=== PATIENT | female | born 1975 | race Caucasian/White ===

== ENCOUNTER 2018-07-12 08:24 | Outpatient (CLI) | payer BC, SELFPAY ==
[2018-07-12 16:11] LABS: TSH (W/Ref FT4) 0.03 uIU/mL (0.358-3.74)
[2018-07-12 16:48] LABS: FREE T4 1.28 ng/dL (0.76-1.46)
== END 2018-07-12 08:44 ==
PROVIDERS: PCP Family Medicine; Visit Provider Family Medicine
DX: E03.9 Hypothyroidism, unspecified (principal)
CPT/HCPCS: 36415; 84439; 84443

== ENCOUNTER 2019-08-01 02:36 | Outpatient (CLI) | payer BC, SELFPAY ==
[2019-08-01 16:04] LABS: TSH (W/Ref FT4) 0.03 uIU/mL (0.36-3.74)
== END 2019-08-01 02:56 ==
PROVIDERS: PCP Family Medicine; Visit Provider Family Medicine
DX: E03.9 Hypothyroidism, unspecified (principal)
CPT/HCPCS: 36415; 84439; 84443

== ENCOUNTER 2019-11-13 15:01 | Outpatient (REF) | payer BC, SELFPAY ==
[2019-11-13 16:35] LABS: TSH (W/Ref FT4) 0.03 uIU/mL (0.36-3.74)
[2019-11-13 16:57] LABS: FREE T4 1.24 ng/dL (0.76-1.46)
[2019-11-16 17:03] LABS: SARS-CoV-2 RNA Undetected (Undetected); SARS-CoV-2 Specimen Source Nasopharynx
== END 2019-11-13 15:21 ==
LOC: NCHCN 15:01
PROVIDERS: Visit Provider Nurse Practitioner Family
DX: E03.9 Hypothyroidism, unspecified (principal); Z20.828 Contact with and (suspected) exposure to other viral communicable diseases
CPT/HCPCS: U0003; 84439; 84443

== ENCOUNTER 2020-01-07 07:38 | Outpatient (REF) | payer BC, SELFPAY ==
[2020-01-07 20:18] LABS: TSH (W/Ref FT4) 0.19 uIU/mL (0.36-3.74)
[2020-01-07 20:38] LABS: FREE T4 1.06 ng/dL (0.76-1.46)
== END 2020-01-07 07:58 ==
LOC: NCHCN 07:38
PROVIDERS: Visit Provider Nurse Practitioner Family
DX: E03.9 Hypothyroidism, unspecified (principal)
CPT/HCPCS: 84439; 84443

== ENCOUNTER 2020-03-18 19:57 | Outpatient (REF) | payer BC, SELFPAY ==
[2020-03-18 19:46] LABS: TSH (W/Ref FT4) 24.12 uIU/mL (0.36-3.74)
[2020-03-18 20:09] LABS: FREE T4 0.73 ng/dL (0.76-1.46)
== END 2020-03-18 20:17 ==
LOC: LBN 19:57
PROVIDERS: Visit Provider Family Medicine
DX: E03.9 Hypothyroidism, unspecified (principal)
CPT/HCPCS: 84439; 84443

== ENCOUNTER 2020-08-04 09:01 | Outpatient (REF) | payer BC, SELFPAY ==
[2020-08-04 12:18] LABS: TSH (W/Ref FT4) 3.99 uIU/mL (0.36-3.74)
[2020-08-04 12:44] LABS: FREE T4 1.14 ng/dL (0.76-1.46)
== END 2020-08-04 09:02 | disposition home or self-care (01) ==
LOC: NCHCN 09:01
PROVIDERS: Visit Provider Family Medicine
DX: E03.9 Hypothyroidism, unspecified (principal)
CPT/HCPCS: 84439; 84443

== ENCOUNTER 2020-08-19 01:29 | Outpatient (CLI) | payer BC, SELFPAY ==
--- NOTE | 2020-08-19 16:21 | DI.MAMMO_ITS ---
EXAM: MG MAMMO SCREENING CLINICAL HISTORY: SCREENING, Z12.39. TECHNIQUE: Bilateral full field digital CC and MLO mammographic images were obtained with 3D tomosyn thesis and utilizing computer aided detection (CAD). COMPARISON: Prior baseline mammogram June 2017 FINDINGS: The fibroglandular tissue is again noted be dense, this decreasing the sensitivity mammogram for find ing in underlying lesions. There are no CAD designations. No new obvious radiographic findings in the right breast. Anteriorly in the left breast there is a suggestion of possible nodule in the retroareolar region tristin suring 7 by millimeters located 1.6 cm in from the nipple. There are no malignant-appearing microcalcification groups is region or elsewhere in either breast. No new architectural distortion or skin thickening-traction IMPRESSION: Dense bilateral fibroglandular tissue. Asymmetric density-possible nodule anteriorly in the left keyshawn ast. Breast ultrasound recommended. BI-RADS Category 0 - Assessment Incomplete: Need additional imaging evaluation Breast Density - Category C - Heterogeneously dense Breast density Category C or D implies that the patient has dense breast tissue. Dense breast tissue can make it harder to find cancer on a mammogram. Dense breast tissue is also associated with an incr eased risk of breast cancer. This information about the result of the mammogram report was provided to the patient to raise their awareness. Use this report when you speak with the patient about their risks for breast cancer, which includes their family history. At that time, you may recommend additional screening tests (Ultrasoun d or MRI) as these tests may add significant information. A negative radiographic report should not delay biopsy if a dominant or clinically suspicious mass is present. Up to ten percent of cancers are not identified on mammography. A negative report may reinforce clinical impression. Adenosis and dense breasts may obscure an underlying neoplasm. False positive reports average 6 to 10%. Patient will receive a letter notifying them of these results.
== END 2020-08-19 01:49 ==
PROVIDERS: PCP Family Medicine; Visit Provider Family Medicine
DX: Z12.31 Encounter for screening mammogram for malignant neoplasm of breast (principal); R92.8 Other abnormal and inconclusive findings on diagnostic imaging of breast
CPT/HCPCS: 77063; 77067

== ENCOUNTER 2021-08-16 12:00 | Outpatient (REF) | payer BC, SELFPAY ==
[2021-08-16 17:22] LABS: TSH 8.45 uIU/mL (0.36-3.74)
== END 2021-08-16 12:01 | disposition home or self-care (01) ==
LOC: NCHCN 12:00
PROVIDERS: PCP Family Medicine; Visit Provider Family Medicine
DX: E03.9 Hypothyroidism, unspecified (principal)
CPT/HCPCS: 84443

== ENCOUNTER 2021-09-01 01:32 | Outpatient (CLI) | payer BC, SELFPAY ==
--- NOTE | 2021-09-01 | DI.MAMMO_ITS ---
Exam(s) MAMMO SCREENING EXAM: MAMMO SCREENING CLINICAL HISTORY: SCREENING, Z12.39 TECHNIQUE: Mammograms were interpreted according to the usual protocol including computer analysis w [facility] CAD system, tomosynthesis and C-view imaging. COMPARISON: FINDINGS: The breasts are heterogeneously dense. No dominant mass or clumped microcalcification is identified in either breast. Current examination is compared with previous examinations including July 2020 an d there has been no gross interval change appearance comparison with prior studies. IMPRESSION: No specific evidence of malignancy at this time. Routine screening examinations are suggested at yea rly intervals in this age group according to the ACS ACR guidelines. BI-RADS Category 1 - Negative Breast Density - Category C - Heterogeneously dense
== END 2021-09-01 01:52 ==
PROVIDERS: PCP Family Medicine; Visit Provider Family Medicine
DX: Z12.31 Encounter for screening mammogram for malignant neoplasm of breast (principal)
CPT/HCPCS: 77063; 77067

== ENCOUNTER 2021-11-19 14:34 | Outpatient (REF) | payer BC, SELFPAY ==
[2021-11-19 15:38] LABS: Calculated LDL 154 mg/dL (<100); Cholesterol 214 mg/dL (<200); HDL Cholesterol 40 mg/dL (40-60); TSH (W/Ref FT4) 2.58 uIU/mL (0.36-3.74); Triglyceride 100 mg/dL (<150)
[2021-11-20 09:19] LABS: HIV-1/2 Ag & Ab Screen Negative (Negative)
[2021-11-22 10:53] LABS: Hepatitis C Ab w Rflx HCV PCR Negative (Negative)
== END 2021-11-19 14:35 | disposition home or self-care (01) ==
LOC: NCHCN 14:34
PROVIDERS: PCP Family Medicine; Visit Provider Family Medicine
DX: Z00.00 Encounter for general adult medical examination without abnormal findings (principal); E03.9 Hypothyroidism, unspecified; Z11.4 Encounter for screening for human immunodeficiency virus [HIV]; Z11.59 Encounter for screening for other viral diseases; Z13.220 Encounter for screening for lipoid disorders
CPT/HCPCS: 80061; 86803; 87389; 84443

== ENCOUNTER 2022-08-15 12:02 | Outpatient (REF) | payer BC, SELFPAY | END 2022-08-15 12:03 | disposition home or self-care (01) | LOC: NCHCN 12:02 | PROVIDERS: PCP Family Medicine; Visit Provider Family Medicine | DX: E03.9 Hypothyroidism, unspecified (principal) | CPT/HCPCS: 84443 ==

== ENCOUNTER 2022-08-29 11:45 | Outpatient (REF) | payer BC, SELFPAY ==
--- NOTE | 2022-08-29 11:00 | PAPFT_PTH ---
PATIENT: Maite Morris LOC: [facility]#:[id number] AGE/SX: 47/F ROOM: RE08/29/[address]: Rhianna Newell : 1975 BED: DIS: 08/29/2022 SPEC #: [id number] RECD: 08/30/22 12:58 STATUS: MAXINE REQ #: [id number] CINDY: 08/29/22 11:[address]: Rhianna Newell DEPT: [facility] Cytology RECD BY: Kayla Mabry Tissues: 1 - CX/ENDOCX FOR PAP SMEARS Procedures: PAP THIN PREP/UVM Screening HPV DNA PROBE Comments: [id number] (CHLAMYDIA/GC)
[2022-08-31 14:54] LABS: Chlamydia Result Negative (Negative); GC Result Negative (Negative)
== END 2022-08-29 11:46 | disposition home or self-care (01) ==
LOC: NCHCN 11:45
PROVIDERS: PCP Family Medicine; Visit Provider Family Medicine
DX: Z01.419 Encounter for gynecological examination (general) (routine) without abnormal findings (principal)
CPT/HCPCS: 87491; 87591; 88142; 87624

== ENCOUNTER 2022-09-01 00:44 | Outpatient (CLI) | payer BC, SELFPAY ==
--- NOTE | 2022-09-01 08:17 | DI.RAD_ITS ---
Exam(s) XR KNEE LT 3V AP,LAT,MARCO EXAM: XR KNEE LT 3V AP,LAT,MARCO CLINICAL HISTORY: KNEE JOINT PAIN > 3 MONTHS LT, M25.562. TECHNIQUE: 2D digital imaging was performed. Three views. COMPARISON: CR LEFT KNEE LIMITED 1 OR 2 VIEWS from 10/04/2011 FINDINGS: BONES: No acute fracture is present. No bony destructive lesion is seen. JOINTS: The knee is normally aligned. No joint effusion is seen. Minimal degenerative changes. SOFT TISSUE: Venous varicosities. IMPRESSION: No acute abnormality. DATA REPOSITORY: RADIATION DOSE DELIVERED:
== END 2022-09-01 01:04 ==
LOC: DI 00:44
PROVIDERS: PCP Family Medicine; Visit Provider Family Medicine
DX: M25.562 Pain in left knee (principal)
CPT/HCPCS: 73562

== ENCOUNTER 2022-09-13 01:18 | Outpatient (CLI) | payer BC, SELFPAY ==
--- NOTE | 2022-09-13 08:05 | DI.MAMMO_ITS ---
Exam(s) MAMMO SCREENING EXAM: MAMMO SCREENING CLINICAL HISTORY: SCREENING, Z12.39 TECHNIQUE: Bilateral full field digital CC and MLO mammographic images were obtained with 3D tomosyn thesis and utilizing computer aided detection (CAD). COMPARISON: Available for comparison. FINDINGS: Masses/Architectural Distortion: There is an area of increased density overlying the right axillary r egion which has increased in size. No areas of architectural distortion are seen. Microcalcifications: No suspicious pleomorphic-type are seen. Skin Thickening/Nipple Retraction: None. IMPRESSION: 1. Large area of increased density overlying the right axillary region. 2. Spot compression views requested for further evaluation. Ultrasound should be obtained at that ti me. BI-RADS Category 0 - Assessment Incomplete: Need additional imaging evaluation Breast Density - Category C - Heterogeneously dense Breast density category C or D implies that the patient has dense breast tissue. Dense breast tissue is very common and is not abnormal but dense breast tissue can make it harder to find cancer on a ma mmogram. Also, dense breast tissue may increase their breast cancer risk. This information about the result of the mammogram report was provided to the patient to raise their awareness. Use this report when you speak with the patient about their risks for breast cancer, which includes their family hist ory. At that time, you may recommend for more screening tests (Ultrasound or MRI) as they might be us eful based on their risk. A negative radiographic report should not delay biopsy if a dominant or clinically suspicious mass is present. Up to ten percent of cancers are not identified on mammography. A negative report may reinforce clinical impression. Adenosis and dense breasts may obscure an underlying neoplasm. False positive reports average 6 to 10%. Patient will receive a letter notifying them of these results.
== END 2022-09-13 01:38 ==
LOC: DI 01:19
PROVIDERS: PCP Family Medicine; Visit Provider Family Medicine
DX: Z12.31 Encounter for screening mammogram for malignant neoplasm of breast (principal)
CPT/HCPCS: 77063; 77067

== ENCOUNTER 2022-09-20 02:09 | Outpatient (CLI) | payer BC, SELFPAY ==
--- NOTE | 2022-09-20 10:15 | DI.MAMMO_ITS ---
Exam(s) MG MAMMO SCREEN CALL BACK UNI US BREAST RT COMPLETE EXAM: MG MAMMO SCREEN CALL BACK UNI-RIGHT AND COMPLETE RIGHT BREAST ULTRASOUND CLINICAL HISTORY: LARGE AREA OF INCREASED DENSITY OVERLYING RT AXILLARY REGION. TECHNIQUE: Unilateral spot mammographic images obtained with 3D tomosynthesisand utilizing computer aided detection (CAD). . Complete RIGHT breast Ultrasound was also performed, including all 4 quadrants, the retroareolar alice on, and the ipsilateral axilla. COMPARISON: Prior mammograms were reviewed. This additional imaging was performed due to findings described on the recent screening mammogram of 09/13/2022. FINDINGS: DIAGNOSTIC MAMMOGRAM: Additional mammographic views performed todayrender this area somewhat less concerning. We proceeded to ultrasound COMPLETE RIGHT BREAST ULTRASOUND: Ultrasound performed today reveals no significant findings in all 4 quadrants nor in the axillary nya l region (area of concern on the mammogram) there is only dense tissue in this region evident no disc ernible cyst or nodule. Scanning of the ipsilateral axilla reveals no significant adenopathy. IMPRESSION: 1. Benign-appearing right breast findings Appropriate follow-up as discussed by myself with the patient today is repeat right breast imaging in 6 months to include repeat mammogram and ultrasound. The patient was informed of these findings and recommendations by myself prior to leaving the departm ent today. BI-RADS Category 3 - 6 month - Probably Benign Finding: Recommend follow-up mammography in 6 months Breast Density - Category C - Heterogeneously dense Breast density Category C or D implies that the patient has dense breast tissue. Dense breast tissue can make it harder to find cancer on a mammogram. Dense breast tissue is also associated with an incr eased risk of breast cancer. This information about the result of the mammogram report was provided to the patient to raise their awareness. Use this report when you speak with the patient about their risks for breast cancer, which includes their family history. At that time, you may recommend additional screening tests (Ultrasoun d or MRI) as these tests may add significant information. A negative radiographic report should not delay biopsy if a dominant or clinically suspicious mass is present. Up to ten percent of cancers are not identified on mammography. A negative report may reinforce clinical impression. Adenosis and dense breasts may obscure an underlying neoplasm. False positive reports average 6 to 10%. Patient will receive a letter notifying them of these results.
== END 2022-09-20 02:29 ==
LOC: DI 02:10
PROVIDERS: PCP Family Medicine; Visit Provider Family Medicine
DX: R92.8 Other abnormal and inconclusive findings on diagnostic imaging of breast (principal)
CPT/HCPCS: 76642; 77063; 77067

== ENCOUNTER 2023-01-25 06:13 | Day surgery (SDC) | payer BC, SELFPAY ==
--- NOTE | 2023-01-24 10:01 | W.SURGCON ---
Date of service: 01/25/23 Time of Service: 07:30 Assessment and Plan Assessment and plan (1) Screening for colon cancer: Status: Acute Assessment and plan: 47-year-old woman with baseline risk and no symptoms due for colorectal cancer screening. Plan: Colonoscopy History of Present Illness Narrative: Patient here for screening colonoscopy. No symptoms. No prior colonoscopy. No family history of colorectal cancer. PFSH All Active Problems Insomnia (Acute) Cold sore (Acute) Hypothyroid (Chronic) Screening for colon cancer (Acute) Surgical History (Updated 01/24/23 @ 09:45 by Donavan Choi) Hx of tubal ligation Social History Smoking/Tobacco Use Status: Never Smoking risk assessment performed?: Yes Alcohol Intake: never Drug use: Never Substance use type: does not use Housing: house Do you feel safe at home: Yes Do you feel safe in your relationship?: Yes Exam Narrative Exam Narrative: General: Nontoxic, comfortable and interactive Neuro: Alert and oriented x3 Psych: Good mood and affect, good insight and understanding into condition Chest: Nonlabored breathing and no wheezing Heart: Regular
--- NOTE | 2023-01-25 06:10 | W.ANESPRE ---
General Info Date of Service Date Performed: 01/25/23 Height: 5 ft 1 in Weight: 52.163 kg Body Mass Index (BMI): 21.7 Surgical Procedure: Operation Date: 01/25/23 07:35 Proposed Procedure Side Surgeon p Eusebio Torres MD Meds Allergies and Home Medications Allergies Allergy/AdvReac Type Severity Reaction Status Date / Time amoxicillin Allergy Intermediate Hives Verified 01/25/23 06:27 Home Medication Medication Instructions Recorded levothyroxine 75 mcg capsule 75 mcg PO DAILY 03/10/22 bisacodyl 5 mg tablet,delayed 5 mg PO ONCE #4 tabs 12/22/22 release (Dulcolax (bisacodyl)) polyethylene glycol 3350 17 17 g PO ONCE #238 grams 12/22/22 gram/dose oral powder valacyclovir 1 gram tablet 2,000 mg PO DAILY PRN 12/22/22 (Valtrex) Current Visit Medications: Current Medications Generic Name Dose Route Start Last Admin Trade Name Freq PRN Reason Stop Dose Admin Ringer's Solution 1,000 mls @ 80 mls/hr 01/25/23 06:00 IV 02/23/23 23:59 INFUSION JEFF IV Miscellaneous Supplies 1 each 01/25/23 06:00 Iv Access IV 02/23/23 23:59 DIRECTED JEFF Sodium Chloride 0 ml 01/25/23 06:00 Normal Saline Flush 10 Ml Syr IV 02/23/23 23:59 PRN PRN Sodium Chloride 0 ml 01/25/23 06:00 Normal Saline 10 Ml Vial IJ 02/23/23 23:59 DIRECTED PRN Sterile Water 0 ml 01/25/23 06:00 Water,Injection,Sterile 10 Ml Vial IJ 02/23/23 23:59 DIRECTED PRN PFSH Active Problems Active Problems: Problem Status Onset Code Insomnia G47.00 Cold sore B00.1 Hypothyroid E03.9 Screening for colon cancer Z12.11 Surgical History Surgical History Hx of tubal ligation Tobacco Smoking/Tobacco Use Status: Never Alcohol Alcohol Intake: never Substance Use Substance use: Never Substance use type: does not use Vital Signs and Lab Results Vital Signs Most Recent Vital Signs in EMR: Temp Pulse Resp BP Pulse Ox 36.7 C 66 17 106/72 100 01/25/23 06:23 01/25/23 06:23 01/25/23 06:23 01/25/23 06:23 01/25/23 06:23 Lab Results Blood Type / Crossmatch: No Data to Display Complete Blood Count: No Data to Display Complete Metabolic Panel: No Data to Display Liver Function Panel: No Data to Display Coagulation Panel: No Data to Display Cardiac Panel: No Data to Display Arterial Blood Gas: No Data to Display Venous Blood Gas: No Data to Display Pancreas Panel: No Data to Display Thyroid Panel: No Data to Display Infectious Disease: No Data to Display Blood Cultures: No Data to Display Toxicology Panel: No Data to Display Panel: No Data to Display Anesthesia Assessment and Plan Anesthesia History Personal History: PONV Family History: No Family History of Anesthesia Complications Exercise Tolerance Exercise Tolerance: Metabolic Equivalents>4 Cardiac & Pulmonary Exam Cardiac Exam: Normal S1/S2 Heart Sounds Pulmonary Exam: Clear Bilateral Breath Sounds Implantable Cardiac Device Does patient have a Pacemaker or an ICD?: No Airway Exam Known Difficult Airway: No Mallampati Class: 1 Mouth Opening: Normal (> 3cm) Thyromental Distance: Greater than 3 cm Neck Range of Motion: Full ROM Neck Circumference: Normal Teeth Condition: Normal Dentition ASA Classification ASA Score: ASA 2 Emergency Case?: No NPO Status NPO Status: NPO Clears >2 hours, Solids >8 hours Status Status: Negative HCG Anesthesia Plan Resuscitation Status: Full Code Anesthesia Technique: General Anesthesia Airway Planned: Natural Airway Monitors Used: Standard Monitors Preoperative Comments:: 47 yo female for colo. Sig PMHx: hypothyroid (on replacment), never smoker,
[2023-01-25 06:23] VITALS: BP 106/72; PULSE 66; RESP 17; TEMP 36.7; O2SAT 100
[2023-01-25] MEDS: Lactated Ringers 1,000 ML 80 ML IV (06:33)
[2023-01-25 07:01] VITALS: BMI 21.7
[2023-01-25 07:59] VITALS: BP 106/69; PULSE 82; RESP 14; TEMP 36.3; O2SAT 100
--- NOTE | 2023-01-25 08:07 | W.ANESPOSTOP ---
Postoperative Evaluation Date, Time and Location Date Performed: 01/25/23 Time Performed: 08:07 Patient Location: Day Surgery Unit Vital Signs Most Recent Imported Vital Signs: Most Recent Vital Signs Temp Pulse Resp BP Pulse Ox 36.3 C L 82 14 106/69 100 01/25/23 07:59 01/25/23 07:59 01/25/23 07:59 01/25/23 07:59 01/25/23 07:59 Pain Score Most Recent Pain Score: Most Recent Pain Score Pain Level 0 01/25/23 07:59 Assessment Mental Status: Awake (Alert & Oriented to Patient Baseline) Airway and Respiratory Function: Patent airway with normal (patient baseline) respiratory exam Cardiovascular Function: Hemodynamically Stable Hydration Status: Adequately Hydrated Nausea & Vomiting: No Nausea or Vomiting Pain: Pt. Denies Any Pain Peripheral Nerve Block: Patient did not receive a nerve block
--- NOTE | 2023-01-25 08:13 | W.COLOREPORT ---
Date of service: 01/25/23 Time of Service: 08:42 Colonoscopy Report Procedure Description: Procedures performed: 1. Colonoscopy Preoperative diagnosis: Screening colonoscopy Postoperative diagnosis: Normal Colon, normal rectum Surgeon: Escobar Torres Anesthesia: Stef Indication for procedure: 47-year-old woman without any symptoms due for her for screening. No family history of significance. Findings: Normal Colon.? Normal Rectum. Surveillance/follow-up recommendations: 10 years Complications: None Blood loss: Minimal Prep: Excellent Specimens:? None Procedure in detail: Written consent was obtained from the patient who was in agreement with the risks, benefits and indications of the procedure.? We went to the endoscopy suite and laid the patient in left lateral decubitus position.? Anesthesia was administered which was tolerated well.? A timeout was performed and when we are all in agreement we began the procedure. Digital rectal exam and visual examination was performed and within normal limits.? A well?lubricated colonoscope was advanced without difficulty all the way to the cecum identified by the ileocecal valve, and triangular folds and appendiceal orifice.? It was then slowly withdrawn.?? Retroflexion was performed in the rectum.? The findings/interventions are noted above. The scope was then removed and the patient tolerated the procedure well and was then taken back to the PACU in hemodynamically stable condition.
--- NOTE | 2023-01-25 08:14 | W.PM.DSUDISC ---
Date of service: 01/25/23 Time of Service: 08:14 Discharge Plan Disposition Patient Disposition: Home Condition: Good Discharge Details Attending Provider: Mustapha Torres Primary Care Provider: Rhianna Newell Home Meds and New Rx's Prescriptions: No Action bisacodyl [Dulcolax (bisacodyl)] 5 mg tablet,delayed release (DR/EC) 5 mg PO ONCE Qty: 4 0RF Rx Instructions: Take per colonoscopy instructions provided by ordering providers office polyethylene glycol 3350 17 gram/dose powder 17 g PO ONCE Qty: 238 0RF Rx Instructions: Take per colonoscopy instructions provided by ordering providers office levothyroxine 75 mcg capsule 75 mcg PO DAILY valacyclovir [Valtrex] 1 gram tablet 2,000 mg PO DAILY PRN Discharge Instructions Additional Instructions: Normal colon. Repeat scope in 10 years. Stand Alone Forms: Colonoscopy Post Instructions Activity:: Activity as Tolerated Diet:: Normal Diet Discharge Orders Discharge Orders: Discharge Order (Routine); Ordered 01/25/23 Ordered By: Mustapha Torres DS: Diagnosis Discharge Diagnosis (1) Screening for colon cancer: Status: Acute Asessment and Plan: Normal colon. Repeat scope in 10 years.
[2023-01-25 08:25] VITALS: BP 113/77; PULSE 68; RESP 16; TEMP 36.7; O2SAT 99
== END 2023-01-25 09:05 | disposition home or self-care (01) ==
PROVIDERS: PCP Family Medicine; Visit Provider Student in an Organized Health Care Education/Training Program
PROC: 0DJD8ZZ Inspection of Lower Intestinal Tract, Via Natural or Artificial Opening Endoscopic (ICD-10-PCS; CPT 45378; principal; 2023-01-25 07:30)
DX: Z12.11 Encounter for screening for malignant neoplasm of colon (principal); E03.9 Hypothyroidism, unspecified; G47.00 Insomnia, unspecified
CPT/HCPCS: 45378; 81025; J2001

== ENCOUNTER → 2023-03-31 02:40 | Outpatient (CLI) | payer BC, SELFPAY ==
--- NOTE | 2023-03-31 | DI.MAMMO_ITS ---
Exam(s) MG MAMMO DIAGNOSTIC UNI EXAM: MAMMO DIAGNOSTIC UNI CLINICAL HISTORY: 6 MO F/U, F/U MAMMO, R92.8 TECHNIQUE: Right cc and MLO mammogram images were performed according to the usual protocol inclu ding computer analysis with CAD system, tomosynthesis and C-view imaging. COMPARISON: 2017 through 20 Sep 2022 FINDINGS: The right breast is composed of heterogeneously dense fibroglandular tissue, breast density category C. No suspicious masses or suspicious microcalcifications are seen. An island of tissue is again noted over the right pectoral muscle. No skin thickening or abnormal axillary lymph nodes are seen. IMPRESSION: BI-RADS Category 1, Negative mammogram Yearly screening mammography is recommended, due in 6 months. Breast Density - Category C - Heterogeneously dense A negative radiographic report should not delay biopsy if a dominant or clinically suspicious mass is present. Up to ten percent of cancers are not identified on mammography. A negative report may reinforce clinical impression. Adenosis and dense breasts may obscure an underlying neoplasm. False positive reports average 6 to 10%. Patient will receive a letter notifying them of these results.
== END ==
PROVIDERS: PCP Family Medicine; Visit Provider Family Medicine
DX: Z12.31 Encounter for screening mammogram for malignant neoplasm of breast (principal); R92.8 Other abnormal and inconclusive findings on diagnostic imaging of breast
CPT/HCPCS: 77061; 77065; G0279

== ENCOUNTER 2023-05-02 03:47 | Outpatient (CLI) | payer BC, SELFPAY ==
[2023-05-02 10:25] LABS: Abs Immature Grans 0.01 10^3/uL (0.0-0.06); Absolute Basophil Count 0.05 10^3/uL (0.0-0.2); Absolute Eosinophil Count 0.05 10^3/uL (0.0-0.7); Absolute Lymphocyte Count 1.59 10^3/uL (1.2-3.4); Absolute Monocyte Count 0.39 10^3/uL (0.1-0.8); Absolute Neutrophil Count 3.32 10^3/uL (1.2-6.7); Basophils % 0.9; Eosinophils % 0.9; HCT 35.9 % (36.0-46.0); HGB 11.7 g/dL (11.2-15.7); Immature Grans % 0.2; Lymphocytes % 29.4; MCH 26.1 pg (27.0-33.0); MCHC 32.6 % (32.0-36.0); MCV 80 fL (80-95); MPV 9.8 fL (8.0-11.0); Monocytes % 7.2; Neutrophils % 61.4; Platelet Count 318 10^3/uL (130-400); RBC 4.49 10^6/uL (3.93-5.22); RDW-SD 46.1 fL; WBC 5.41 10^3/uL (4.4-10.8)
== END 2023-05-02 03:48 | disposition home or self-care (01) ==
LOC: LBO 03:47
PROVIDERS: PCP Family Medicine; Visit Provider Obstetrics & Gynecology
DX: Z01.818 Encounter for other preprocedural examination (principal)
CPT/HCPCS: 36415; 86850; 86900; 86901; 85025

== ENCOUNTER 2023-05-03 10:28 | Day surgery (SDC) | payer BC, SELFPAY ==
[2023-05-03] VITALS (8 sets, daily range): BP systolic 87–123; BP diastolic 44–78; PULSE 58–73; RESP 14–18; TEMP 36.3–36.6; O2SAT 98–100; BMI 21.5
[2023-05-03] MEDS: Lactated Ringers 1,000 ML 125 ML IV (11:28)
--- NOTE | 2023-05-03 13:18 | W.ANESPRE ---
General Info Date of Service Date Performed: 05/03/23 Height: 5 ft 1 in Weight: 51.8 kg Body Mass Index (BMI): 21.5 Surgical Procedure: Operation Date: 05/03/23 12:25 Proposed Procedure Side Surgeon p Dilation & Curettage with Hysteroscopy Linette Lynn MD s Novasure Endometrial Ablation Linette Lynn MD Meds Allergies and Home Medications Allergies Allergy/AdvReac Type Severity Reaction Status Date / Time amoxicillin Allergy Intermediate Hives Verified 05/03/23 10:50 Home Medication Medication Instructions Recorded levothyroxine 75 mcg capsule 75 mcg PO DAILY 03/10/22 Current Visit Medications: Current Medications Generic Name Dose Route Start Last Admin Trade Name Freq PRN Reason Stop Dose Admin Ringer's Solution 1,000 mls @ 125 mls/hr 05/03/23 06:00 05/03/23 11:28 IV 06/01/23 23:59 125 mls/hr INFUSION JEFF Administration IV Miscellaneous Supplies 1 each 05/03/23 06:00 Iv Access IV 06/01/23 23:59 DIRECTED JEFF Sodium Chloride 0 ml 05/03/23 06:00 Normal Saline Flush 10 Ml Syr IV 06/01/23 23:59 PRN PRN Sodium Chloride 0 ml 05/03/23 06:00 Normal Saline 10 Ml Vial IJ 06/01/23 23:59 DIRECTED PRN Sterile Water 0 ml 05/03/23 06:00 Water,Injection,Sterile 10 Ml Vial IJ 06/01/23 23:59 DIRECTED PRN PFSH Active Problems Active Problems: Problem Status Onset Code Dysmenorrhea N94.6 Perimenopausal menorrhagia N92.4 Insomnia G47.00 Cold sore B00.1 Hypothyroid E03.9 Screening for colon cancer Z12.11 Surgical History Surgical History History of colonoscopy (~01/2023) Hx of tubal ligation Tobacco Smoking/Tobacco Use Status: Never Alcohol Alcohol Intake: never Substance Use Substance use: Never Substance use type: does not use Vital Signs and Lab Results Vital Signs Most Recent Vital Signs in EMR: Most Recent Vital Signs Temp Pulse Resp BP Pulse Ox 36.4 C L 73 18 123/78 98 05/03/23 10:53 05/03/23 10:53 05/03/23 10:53 05/03/23 10:53 05/03/23 10:53 Lab Results Blood Type / Crossmatch: Patient ABO/Rh A Negative 05/02/23 Antibody Screen NEGATIVE 05/02/23 Complete Blood Count: White Blood Count 5.41 10^3/uL (4.4-10.8) 05/02/23 10:06 Red Blood Count 4.49 10^6/uL (3.93-5.22) 05/02/23 10:06 Hemoglobin 11.7 g/dL (11.2-15.7) 05/02/23 10:06 Hematocrit 35.9 % (36.0-46.0) L 05/02/23 10:06 Platelet Count 318 10^3/uL (130-400) 05/02/23 10:06 Complete Metabolic Panel: No Data to Display Liver Function Panel: No Data to Display Coagulation Panel: No Data to Display Cardiac Panel: No Data to Display Arterial Blood Gas: No Data to Display Venous Blood Gas: No Data to Display Pancreas Panel: No Data to Display Thyroid Panel: No Data to Display Infectious Disease: No Data to Display Blood Cultures: No Data to Display Toxicology Panel: No Data to Display Panel: No Data to Display Anesthesia Assessment and Plan Anesthesia History Personal History: No History of Anesthesia Complications Family History: No Family History of Anesthesia Complications Exercise Tolerance Exercise Tolerance: Metabolic Equivalents>4 Pertinent Negatives Pertinent Negatives: No Symptoms of GERD, No Major Cardiovascular Symptoms or Complaints and No Major Pulmonary Symptoms or Complaints Cardiac & Pulmonary Exam Cardiac Exam: Normal S1/S2 Heart Sounds Pulmonary Exam: Clear Bilateral Breath Sounds Implantable Cardiac Device Does patient have a Pacemaker or an ICD?: No Airway Exam Known Difficult Airway: No Mallampati Class: 1 Mouth Opening: Normal (> 3cm) Thyromental Distance: Greater than 3 cm Neck Range of Motion: Full ROM Neck Circumference: Normal Teeth Condition: Normal Dentition ASA Classification ASA Score: ASA 2 Emergency Case?: No NPO Status NPO Status: NPO Clears >2 hours, Solids >8 hours Status Status: Negative HCG Anesthesia Plan Resuscitation Status: Full Code Anesthesia Technique: General Anesthesia Airway Planned: LMA Monitors Used: Standard Monitors
[2023-05-03] MEDS: Bupivacaine 0.25% Pres-Free 30 ML VIAL (14:11)
--- NOTE | 2023-05-03 14:22 | ENDOMET_PTH ---
PATIENT: Maite Morris LOC: [facility] U#:[id number] AGE/SX: 47/F ROOM: RE05/03/[address]: Linette Lynn MD : 1975 BED: DIS: 05/03/2023 SPEC #: [id number] RECD: 05/03/23 17:53 STATUS: MAXINE REQ #: [id number] CINDY: 05/03/23 14:[address]: Linette Lynn DEPT: Surgical Specimen RECD BY: Kayla Mabry ENTERED: 05/03/23 17:54 SP TYPE: Endomet OTHR DR: Rhianna Newell Tissues: 1 - ENDOMETRIUM BX/RAOUL Procedures: GROSS AND MICRO LEVEL 4 Comments: [id number]
--- NOTE | 2023-05-03 14:51 | W.PM.DSUDISC ---
Date of service: 05/03/23 Time of Service: 14:00 Discharge Plan Discharge Details Attending Provider: Linette Lynn Primary Care Provider: Rhianna Newell Home Meds and New Rx's Prescriptions: No Action levothyroxine 75 mcg capsule 75 mcg PO DAILY Discharge Instructions Activity:: Activity as Tolerated Remove Dressings/Wound Care:: 24 hours Shower/Bathe:: 24 hours Diet:: As Tolerated
--- NOTE | 2023-05-03 14:53 | ROE_ITS ---
Date of service: 05/03/23 Time of Service: 14:00 Operative Note Operative Note DATE OF PROCEDURE: 05/03/23 PRE-OP DIAGNOSIS: Menorrhagia POST-OP DIAGNOSIS: same PROCEDURE: Hysteroscopy, D&C, Novasure endometrial ablation SURGEON: Linette Lynn Refer to Anesthesia Record COMPLICATIONS: None Patient was transported to: PACU Patient's condition: stable Indications: Failed medical management for heavy menstruation. Findings: Normal appearing endometrium. Procedure Description: After informed consent was signed the patient was taken to the operating room and given General room air anesthesia.? SCDs were placed on her legs.? She was prepped and draped in the dorsal lithotomy position in the [facility].? A time out was performed. Her bladder was drained of urine if not done just prior to arrival to the room.? Exam under anesthesia revealed normal external genitalia, vagina normal for age and a normal sized uterus. A speculum was placed into the vagina to reveal the cervix.? The anterior lip of the cervix was grasped with a single tooth tenaculum.? [A paracervical block was given with 14ml of 0.25% marcaine.]? The cervical length was measured with a large dilator at 3.5cm. The cervix was then dilated until a uterine sound could be inserted to measure the total length of 8cm. The?cavity length was then calculated at 4.5cm. The hysteroscope was assembled and the uterine cavity was visualized. No obvious abnormalities were noted. A sharp curettage was performed. The novasure device was opened and the cavity length set. It was inserted into the endometrial cavity and the width was measured at 3.4cm. The cavity assessment was performed and passed. The device was then deployed for 97 seconds. The device was removed and the wand inspected and appeared thoroughly charred. The hysteroscope was again inserted into the endometrial cavity and it appeared to be mostly treated though there was some pink tissue in the upper right fundus. The hysteroscope was removed from the endometrial cavity. The tenaculum was removed from the cervix with good hemostasis.? The speculum was removed from the vagina. The patient was placed back into the supine position.? She was moved to the stretcher and taken to the recovery room in stable condition.
--- NOTE | 2023-05-03 15:26 | W.ANESPOSTOP ---
Postoperative Evaluation Date, Time and Location Date Performed: 05/03/23 Time Performed: 15:26 Patient Location: Day Surgery Unit Vital Signs Most Recent Imported Vital Signs: Most Recent Vital Signs Temp Pulse Resp BP Pulse Ox 36.3 C L 64 16 102/66 98 05/03/23 15:16 05/03/23 15:16 05/03/23 15:16 05/03/23 15:16 05/03/23 15:16 Pain Score Most Recent Pain Score: Most Recent Pain Score Pain Level 0 05/03/23 15:16 Assessment Mental Status: Awake (Alert & Oriented to Patient Baseline) Airway and Respiratory Function: Patent airway with normal (patient baseline) respiratory exam Cardiovascular Function: Hemodynamically Stable Hydration Status: Adequately Hydrated Nausea & Vomiting: No Nausea or Vomiting Pain: Pain is tolerable per patient Peripheral Nerve Block: Patient did not receive a nerve block
== END 2023-05-03 16:35 | disposition home or self-care (01) ==
LOC: SUR 10:29
PROVIDERS: PCP Family Medicine; Visit Provider Obstetrics & Gynecology
PROC: 0UDB8ZZ Extraction of Endometrium, Via Natural or Artificial Opening Endoscopic (ICD-10-PCS; CPT 58558; principal; 2023-05-03 12:15)
PROC: (CPT 58353; 2023-05-03 12:15)
DX: N92.0 Excessive and frequent menstruation with regular cycle (principal); E03.9 Hypothyroidism, unspecified; G47.00 Insomnia, unspecified; N85.00 Endometrial hyperplasia, unspecified
CPT/HCPCS: 58563; 88305; J1100; J1885; J2001; J2405; J2704

== ENCOUNTER 2023-09-04 14:41 | Outpatient (REF) | payer BC, SELFPAY | END 2023-09-04 14:42 | disposition home or self-care (01) | LOC: NCHCN 14:41 | PROVIDERS: PCP Family Medicine; Visit Provider Family Medicine | DX: E03.9 Hypothyroidism, unspecified (principal) | CPT/HCPCS: 84443 ==

== ENCOUNTER → 2023-09-19 03:01 | Outpatient (CLI) | payer BC, SELFPAY ==
--- NOTE | 2023-09-19 | DI.MAMMO_ITS ---
Exam(s) MAMMO SCREENING EXAM: MAMMO SCREENING CLINICAL HISTORY: SCREENING MAMMO FOR BREAST CANCER Z12.31 TECHNIQUE: Bilateral full field digital CC and MLO mammographic images were obtained with 3D tomosyn thesis and utilizing computer aided detection (CAD). COMPARISON: 2017 through 2022 FINDINGS: Masses: New area of nodularity in the medial right breast. Spot compression views and ultrasound rec ommended for further evaluation. Architectural Distortion: None seen. Microcalcifications: No suspicious pleomorphic-type are seen. Skin Thickening/Nipple Retraction: None. IMPRESSION: 1. Small nodule now present in the medial right breast. Spot compression views and ultrasound recomm ended for further evaluation. 2. No change in the appearance of the left breast. BI-RADS Category 0 - Assessment Incomplete: Need additional imaging evaluation Breast Density - Category C - Heterogeneously dense Breast density category C or D implies that the patient has dense breast tissue. Dense breast tissue is very common and is not abnormal but dense breast tissue can make it harder to find cancer on a ma mmogram. Also, dense breast tissue may increase their breast cancer risk. This information about the result of the mammogram report was provided to the patient to raise their awareness. Use this report when you speak with the patient about their risks for breast cancer, which includes their family hist ory. At that time, you may recommend for more screening tests (Ultrasound or MRI) as they might be us eful based on their risk. A negative radiographic report should not delay biopsy if a dominant or clinically suspicious mass is present. Up to ten percent of cancers are not identified on mammography. A negative report may reinforce clinical impression. Adenosis and dense breasts may obscure an underlying neoplasm. False positive reports average 6 to 10%. Patient will receive a letter notifying them of these results.
== END ==
PROVIDERS: PCP Family Medicine; Visit Provider Family Medicine
DX: Z12.31 Encounter for screening mammogram for malignant neoplasm of breast (principal); R92.8 Other abnormal and inconclusive findings on diagnostic imaging of breast
CPT/HCPCS: 77063; 77067

== ENCOUNTER → 2023-09-22 02:24 | Outpatient (CLI) | payer BC, SELFPAY ==
--- NOTE | 2023-09-22 | DI.MAMMO_ITS ---
Exam(s) MG MAMMO SCREEN CALL BACK UNI US BREAST RT COMPLETE EXAM: MG MAMMO SCREEN CALL BACK UNI-RIGHT AND COMPLETE RIGHT BREAST ULTRASOUND CLINICAL HISTORY: SMALL NODULE MEDIAL RT BREAST, F/U ABNL MAMMO, R92.8. TECHNIQUE: Unilateral RIGHT BREAST spot mammographic images obtained with 3D tomosynthesisand utiliz ing computer aided detection (CAD). . Complete RIGHT breast Ultrasound was also performed, including all 4 quadrants, the retroareolar alice on, and the ipsilateral axilla. COMPARISON: Prior mammograms were reviewed. This additional imaging was performed due to findings described on the recent screening mammogram of 09/19/2023. FINDINGS: DIAGNOSTIC MAMMOGRAM: Additional mammographic views performed today do not completely dissipate previously described findin g. We proceeded with ultrasound... COMPLETE RIGHT BREAST ULTRASOUND: Ultrasound performed today reveals a solitary finding which is a 4 x 3 millimeter benign microcyst at the 3 o'clock position, correspond to the finding on the mammogram.. There are no other focal ultra sound findings in all 4 quadrants. Scanning of the ipsilateral axilla reveals no significant adenopathy. IMPRESSION: 1. Benign findings. The nodule on the mammogram corresponds to a 4 x 3 millimeter benign microcyst at the 3 o'clock position on ultrasound. 2. No solid lesions seen in all 4 quadrants on ultrasound. Appropriate follow-up is to keep this patient on her yearly mammogram schedule, with earlier imaging if a self detected breast change is noted. The patient was informed of these findings and recommendations by myself prior to leaving the [facility] ent today. BI-RADS Category 2 - Benign Findings Breast Density - Category C - Heterogeneously dense Breast density Category C or D implies that the patient has dense breast tissue. Dense breast tissue can make it harder to find cancer on a mammogram. Dense breast tissue is also associated with an incr eased risk of breast cancer. This information about the result of the mammogram report was provided to the patient to raise their awareness. Use this report when you speak with the patient about their risks for breast cancer, which includes their family history. At that time, you may recommend additional screening tests (Ultrasoun d or MRI) as these tests may add significant information. A negative radiographic report should not delay biopsy if a dominant or clinically suspicious mass is present. Up to ten percent of cancers are not identified on mammography. A negative report may reinforce clinical impression. Adenosis and dense breasts may obscure an underlying neoplasm. False positive reports average 6 to 10%. Patient will receive a letter notifying them of these results.
== END ==
PROVIDERS: PCP Family Medicine; Visit Provider Family Medicine
DX: Z12.31 Encounter for screening mammogram for malignant neoplasm of breast (principal); R92.8 Other abnormal and inconclusive findings on diagnostic imaging of breast
CPT/HCPCS: 76642; 77063; 77067

== ENCOUNTER 2023-11-27 12:13 | Outpatient (CLI) | payer BC, SELFPAY ==
--- NOTE | 2023-11-27 11:15 | DI.RAD_ITS ---
Exam(s) XR KNEE LT 4V AP,LAT,MARCO,PAT EXAM: XR KNEE LT 4V AP,LAT,MARCO,PAT CLINICAL HISTORY: LEFT KNEE PAIN. TECHNIQUE: 2D digital imaging was performed. Three views. COMPARISON: CR XR KNEE LT 3V AP,LAT,MARCO from 09/01/2022 FINDINGS: BONES: No acute fracture is present. No bony destructive lesion is seen. JOINTS: The knee is normally aligned. No joint effusion is seen. Joint spaces are maintained. No s ignificant periarticular spurring. SOFT TISSUE: Normal mild venous varicosities. IMPRESSION: No acute abnormality. DATA REPOSITORY: RADIATION DOSE DELIVERED:
--- NOTE | 2023-11-27 11:15 | DI.RAD_ITS ---
Exam(s) XR HIP LT COMPLETE AP PELVIS EXAM: XR HIP LT COMPLETE AP PELVISzz CLINICAL HISTORY: LEFT KNEE PAIN. TECHNIQUE: 2D digital imaging was performed. Two views. COMPARISON: No exams were available for comparison FINDINGS: BONES: No acute fracture is present. No bony destructive lesion is seen. JOINTS: No dislocation present. Hip joint spaces are maintained. No significant degenerative delgado es. Mild spurring of both SI joints. SOFT TISSUE: Normal. IMPRESSION: Unremarkable radiographs of the left hip. Mild degenerative changes of the SI joints. DATA REPOSITORY: RADIATION DOSE DELIVERED:
== END 2023-11-27 12:14 | disposition home or self-care (01) ==
PROVIDERS: PCP Family Medicine; Visit Provider Student in an Organized Health Care Education/Training Program
DX: M25.562 Pain in left knee (principal); M53.3 Sacrococcygeal disorders, not elsewhere classified
CPT/HCPCS: 73502; 73564

== ENCOUNTER → 2023-12-20 00:56 | Outpatient (CLI) | payer BC, SELFPAY ==
--- NOTE | 2023-12-20 06:58 | DI.MRI_ITS ---
Exam(s) MR LOWER JOINT LT WO EXAM: MR LOWER JOINT LT WO CLINICAL HISTORY: pain, lt knee pain, M25.562. TECHNIQUE: Multiplanar multisequence MRI was performed. COMPARISON: CR XR KNEE LT 4V AP,LAT,MARCO,PAT from 11/27/2023 FINDINGS: BONES: There is no fracture or contusion pattern. JOINTS: No joint effusion is present. Articular cartilage: Patellofemoral joint: Articular cartilage is unremarkable. Medial femoral tibial joint: Articular cartilage is unremarkable. Lateral femoral tibial joint: Articular cartilage is unremarkable. LIGAMENTS: Anterior Cruciate: Unremarkable. Posterior Cruciate: Unremarkable. Medial Collateral:Unremarkable. Lateral Collateral ligament complex: Unremarkable. TENDONS: Extensor mechanism: Unremarkable. Medial retinaculum: Unremarkable. Lateral retinaculum: Unremarkable. Popliteus: Unremarkable. MENISCI: The medial meniscus shows mild degenerative intrasubstance signal in the posterior horn. The lateral meniscus is unremarkable. MUSCLES: Unremarkable. SOFT TISSUES: Venous varicosities posteromedially. Multi lobulated synovial cysts or ganglia seen la terally in Hoffa's fat pad measuring roughly 2.3 x 2 by 2.5 Cm. IMPRESSION: No ligament or meniscal tear. Roughly 2.5 centimeter lobulated ganglion cyst versus synovial cyst the lateral aspect of Hoffa's fat pad. DATA REPOSITORY:
--- NOTE | 2023-12-20 06:58 | DI.MRI_ITS ---
Exam(s) MR LOWER JOINT LT WO EXAM: MR LOWER JOINT LT WO CLINICAL HISTORY: pain, lt hip pain, M25.552. TECHNIQUE: Multiplanar multisequence MRI was performed. CONTRAST MATERIAL: IV Contrast: mL of Dotarem contrast administered. COMPARISON: None. FINDINGS: BONES/JOINTS: No evidence of fracture. No evidence of suspicious bone lesion. No joint space narrowin g identified. No joint effusion identified. 6 millimeter cyst and anterior left acetabulum, likely d egenerative. MUSCULOTENDINOUS STRUCTURES: No evidence of tendon tear or tendinosis. Symmetric appearance bilatera lly. SOFT TISSUES: Unremarkable. Intrapelvic contents unremarkable. IMPRESSION: 6 millimeter cyst in the anterior left acetabulum. No evidence of tendon tear or gross evidence of labral tear. DATA REPOSITORY:
== END ==
PROVIDERS: PCP Family Medicine; Visit Provider Student in an Organized Health Care Education/Training Program
DX: M25.562 Pain in left knee (principal); M25.552 Pain in left hip
CPT/HCPCS: 73721

== ENCOUNTER 2024-01-30 11:28 | Day surgery (SDC) | payer BC, SELFPAY ==
[2024-01-30] VITALS (43 sets, daily range): BP systolic 102–145; BP diastolic 55–86; PULSE 51–94; RESP 9–27; TEMP 36.2–37; O2SAT 95–100; BMI 23.9
[2024-01-30] MEDS: Celecoxib 200 MG CAP 400 MG PO (11:54)
[2024-01-30] MEDS: Acetaminophen 500 MG TAB 1000 MG PO (11:54)
[2024-01-30] MEDS: Lactated Ringers 1,000 ML 80 ML IV (12:04)
--- NOTE | 2024-01-30 13:01 | W.ANESPRE ---
General Info Date of Service Date Performed: 01/30/24 Height: 5 ft 1 in Weight: 57.5 kg Body Mass Index (BMI): 23.9 Surgical Procedure: Operation Date: 01/30/24 14:55 Proposed Procedure Side Surgeon p Knee Arthroscopy Synovectomy/ Foot Pad Resection Left Seth Cam MD Meds Allergies and Home Medications Allergies Allergy/AdvReac Type Severity Reaction Status Date / Time amoxicillin Allergy Intermediate Hives Verified 01/30/24 11:52 Home Medication ?Medication ?Instructions ?Recorded levothyroxine 75 mcg capsule 75 mcg PO DAILY 03/10/22 valacyclovir 1 gram tablet 2,000 mg PO BID PRN 09/12/23 Current Visit Medications: Current Medications Generic Name Dose Route Start Last Admin Trade Name Freq PRN Reason Stop Dose Admin Acetaminophen 1,000 mg 01/30/24 06:00 01/30/24 11:54 Acetaminophen 500 Mg Tab PO 02/28/24 23:59 1,000 mg PREOP JEFF Administration Celecoxib 400 mg 01/30/24 06:00 01/30/24 11:54 Celecoxib 200 Mg Cap PO 02/28/24 23:59 400 mg PREOP JEFF Administration Ringer's Solution 1,000 mls @ 80 mls/hr 01/30/24 06:00 01/30/24 12:04 IV 02/28/24 23:59 80 mls/hr INFUSION JEFF Administration Cefazolin Sodium/Dextrose 2 gm in 50 mls @ 100 mls/hr 01/30/24 06:00 Ancef Duplex IVPB 02/28/24 23:59 PREOP JEFF Tranexamic Acid/Sodium Chloride 1,000 mg in 100 mls @ 600 mls/hr 01/30/24 06:00 IVPB 02/28/24 23:59 PREOP JEFF IV Miscellaneous Supplies 1 each 01/30/24 06:00 Iv Access IV 02/28/24 23:59 DIRECTED JEFF Sodium Chloride 0 ml 01/30/24 06:00 Normal Saline Flush 10 Ml Syr IV 02/28/24 23:59 PRN PRN Sodium Chloride 0 ml 01/30/24 06:00 Normal Saline 10 Ml Vial IJ 02/28/24 23:59 DIRECTED PRN Sterile Water 0 ml 01/30/24 06:00 Water,Injection,Sterile 10 Ml Vial IJ 02/28/24 23:59 DIRECTED PRN PFSH Active Problems Active Problems: Problem Status Onset Code 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 Knee joint cyst, left Acute M25.862 Degenerative joint disease of left hip Acute M16.12 Chronic left hip pain Acute M25.552, G89.29 Internal derangement of left knee Acute M23.92 Lip lesion Acute K13.0 Disorder of the skin and subcutaneous tissue, unspecified Acute L98.9 Hypothyroid Chronic E03.9 Insomnia Acute G47.00 Medical History Medical History Pain, joint, knee, left Menorrhagia Dysmenorrhea Perimenopausal menorrhagia Novasure endometrial ablation 05/03/23 Cold sore Surgical History Surgical History History of endometrial ablation History of hysteroscopy D&C, hysteroscopy, novasure endometrial ablation 05/03/23 for menorrhagia History of colonoscopy (~01/2023) Hx of tubal ligation Tobacco Smoking/Tobacco Use Status: Never Alcohol Alcohol Intake: never Substance Use Substance use: Never Substance use type: does not use Vital Signs and Lab Results Vital Signs Most Recent Vital Signs in EMR: Most Recent Vital Signs Temp Pulse Resp BP Pulse Ox 37 C 80 20 112/69 100 01/30/24 11:48 01/30/24 11:48 01/30/24 11:48 01/30/24 11:48 01/30/24 11:48 Point of Care Results Point of Care Results: POC- Test(urine) Negative 01/30/24 11:53 Lab Results Blood Type / Crossmatch: No Data to Display Complete Blood Count: No Data to Display Complete Metabolic Panel: No Data to Display Liver Function Panel: No Data to Display Coagulation Panel: No Data to Display Cardiac Panel: No Data to Display Arterial Blood Gas: No Data to Display Venous Blood Gas: No Data to Display Pancreas Panel: No Data to Display Thyroid Panel: No Data to Display Infectious Disease: No Data to Display Blood Cultures: No Data to Display Toxicology Panel: No Data to Display Panel: No Data to Display Anesthesia Assessment and Plan Anesthesia History Personal History: No History of Anesthesia Complications Family History: No Family History of Anesthesia Complications Exercise Tolerance Exercise Tolerance: Metabolic Equivalents>4 Pertinent Negatives Pertinent Negatives: No Symptoms of GERD, No Major Cardiovascular Symptoms or Complaints, No Major Pulmonary Symptoms or Complaints and No History of CVA/TIA Cardiac & Pulmonary Exam Cardiac Exam: Normal S1/S2 Heart Sounds Pulmonary Exam: Clear Bilateral Breath Sounds and No cough or Cold Implantable Cardiac Device Does patient have a Pacemaker or an ICD?: No Airway Exam Known Difficult Airway: No Mallampati Class: 1 Mouth Opening: Normal (> 3cm) Thyromental Distance: Greater than 3 cm Neck Range of Motion: Full ROM Neck Circumference: Normal Teeth Condition: Normal Dentition ASA Classification ASA Score: ASA 2 Emergency Case?: No NPO Status NPO Status: NPO Clears >2 hours, Solids >8 hours Status Status: Not Relevant due to Medical History and Not Per Patient Anesthesia Plan Resuscitation Status: Full Code Anesthesia Technique: General Anesthesia Airway Planned: Natural Airway Monitors Used: Standard Monitors
--- NOTE | 2024-01-30 13:53 | W.PREOPHP ---
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 She is here today for arthroscopic synovectomy and debridement. She has no other medical concerns. I reviewed the procedure with her. I discussed the surgical details. I reviewed the risk to include bleeding, infection, pain, stiffness, recurrence, continued symptoms, blood clot. Despite these risk, she elects to proceed. History of Present Illness History of Present Illness Chief Complaint: Left knee pain Narrative: Maite is 48-year-old active female who has known left knee pain. This anterior based left knee pain has been persistent. Despite nonoperative options she continues have symptoms. MRI showed what appeared to be an active fat pad syndrome with inflammation and cystic change within the fat pad consistent with her symptom location. Therefore, I offered arthroscopic synovectomy and debridement. She is here today for that procedure. She denies any new medical symptoms. No chest pain shortness of breath. No fevers or chills. Review of Systems All systems reviewed & are unremarkable except as noted in HPI and below PFSH All Active Problems Hoffa's fat pad disease (Acute) Knee joint cyst, left (Acute) Degenerative joint disease of left hip (Acute) Chronic left hip pain (Acute) Internal derangement of left knee (Acute) Lip lesion (Acute) Disorder of the skin and subcutaneous tissue, unspecified (Acute) Hypothyroid (Chronic) Insomnia (Acute) Medical History Pain, joint, knee, left Menorrhagia Dysmenorrhea Perimenopausal menorrhagia Novasure endometrial ablation 05/03/23 Cold sore Surgical History History of endometrial ablation History of hysteroscopy D&C, hysteroscopy, novasure endometrial ablation 05/03/23 for menorrhagia History of colonoscopy (~01/2023) Hx of tubal ligation Family History Mother Hyperlipidemia Brother Stroke Father No problems noted. Son No problems noted. Maternal Grandfather Skin cancer Maternal Grandmother Cancer Social History Smoking/Tobacco Use Status: Never Smoking risk assessment performed?: Yes Alcohol Intake: never Drug use: Never Substance use type: does not use Housing: house Do you feel safe at home: Yes Do you feel safe in your relationship?: Yes Meds Allergies and Home Medications Allergies Allergy/AdvReac Type Severity Reaction Status Date / Time amoxicillin Allergy Intermediate Hives Verified 01/30/24 11:52 Home Medications ?Medication ?Instructions ?Recorded ?Confirmed ?Type levothyroxine 75 mcg capsule 75 mcg PO DAILY 03/10/22 01/30/24 History valacyclovir 1 gram tablet 2,000 mg PO BID PRN 09/12/23 01/30/24 History Exam Const General: cooperative, healthy appearing, comfortable and no acute distress Resp Auscultation: clear to auscultation bilaterally Cardio Rate: regular rate Rhythm: regular rhythm Results Last Vital Signs Temp 37 C 01/30/24 11:48 Pulse 80 01/30/24 11:48 Resp 20 01/30/24 11:48 BP 112/69 01/30/24 11:48 Pulse Ox 100 01/30/24 11:48
[2024-01-30] MEDS: ceFAZolin 2 GM/50 ML BAG IVPB (14:00)
[2024-01-30] MEDS: TRANEXAMIC ACID/SOD. CHL. 1,000 MG/100 ML BAG 600 MG IVPB (14:07)
--- NOTE | 2024-01-30 14:13 | PDOC.DSDIS_ITS ---
Date of service: 01/30/24 Time of Service: 14:16 Discharge Plan Disposition Patient Disposition: Home Condition: Good Discharge Details Reason For Visit: Hoffa's fat pad disease Attending Provider: Seth Cam Primary Care Provider: Rhianna Newell Home Meds and New Rx's Prescriptions: New acetaminophen 500 mg tablet 500 mg PO Q6H PRN (Reason: pain) Qty: 60 2RF hydrocodone-acetaminophen 5-325 mg tablet 1 tab PO Q6H PRN (Reason: severe pain) Qty: 6 0RF Rx Instructions: Take one tablet up to every 6 hours as needed for severe postoperative pain ibuprofen 600 mg tablet 600 mg PO TID PRN (Reason: pain) Qty: 60 0RF Continued levothyroxine 75 mcg capsule 75 mcg PO DAILY valacyclovir 1 gram tablet 2,000 mg PO BID PRN Rx Instructions: for two doses Discharge Instructions Stand Alone Forms: [facility] K[facility] Arthroscopy Referrals: Seth Cam MD [ [facility] STAFF PHYSICIAN] - Equipment/Supplies: Partial Weight Bearing Crutches Activity:: Elevate Remove Dressings/Wound Care:: 48 hours Shower/Bathe:: 48 hours Diet:: As Tolerated Discharge Orders Discharge Orders: Discharge Order (Routine); Ordered 01/30/24 Ordered By: Adrienne Wagner DS: Diagnosis Discharge Diagnosis (1) Hoffa's fat pad disease: Status: Acute
[2024-01-30] MEDS: Bupivacaine 0.5% Pres-Free 30 ML VIAL (14:20)
[2024-01-30] MEDS: EPINEPHrine 10 MG/10 ML ML (14:33)
[2024-01-30] MEDS: fentaNYL 100 MCG/2 ML VIAL IVP ×2 (15:01→15:06)
[2024-01-30] MEDS: HYDROmorphone 2 MG/ML SYR IVP ×2 (15:17→15:27)
[2024-01-30] MEDS: Normal Saline 10 ML VIAL IJ (15:17)
--- NOTE | 2024-01-30 16:02 | W.ANESPOSTOP ---
Postoperative Evaluation Date, Time and Location Date Performed: 01/30/24 Time Performed: 14:40 Patient Location: PACU Vital Signs Most Recent Imported Vital Signs: Most Recent Vital Signs Temp Pulse Resp BP Pulse Ox 36.7 C 77 14 142/84 H 99 01/30/24 15:56 01/30/24 15:56 01/30/24 15:56 01/30/24 15:56 01/30/24 15:56 Pain Score Most Recent Pain Score: Most Recent Pain Score Pain Level 4 01/30/24 15:50 Assessment Mental Status: Awake (Alert & Oriented to Patient Baseline) Airway and Respiratory Function: Patent airway with normal (patient baseline) respiratory exam Cardiovascular Function: Hemodynamically Stable Hydration Status: Adequately Hydrated Nausea & Vomiting: No Nausea or Vomiting Pain: Pain is Moderate or Severe Postoperative Pain Management: Ongoing Pain, being addressed with regional analgesia Peripheral Nerve Block: Regional nerve block not resolved at time of post operative discharge Teaching Patient Teaching: Discussed Safe Use of Pain Medication Given Recent Anesthesia
--- NOTE | 2024-01-30 16:04 | W.ANESNERVE ---
Nerve Block Single Injection Procedure Date and Time Date Performed: 01/30/24 Procedure Start: 16:05 Location Where Procedure Performed Procedure Location: PACU Reason Performed: Postoperative Analgesia Requesting Provider: Eduard Vegas Timeout Performed Timeout Performed: Yes Monitoring Used ECG, Blood Pressure and SpO2 Sterility Sterility: Hand Hygiene, Surgical Cap, Surgical Mask, Sterile Gloves and Chlorhexidine Sedation Given During Procedure Sedation Given (Indicate Dose Given): No Sedation given Patient Mental Status Patient Mental Status: Awake Nerve Block 1st Nerve Block: Laterality: Left Block Type: Adductor Canal Ultrasound Image Saved?: Yes Needle / Catheter Used: 100mm SonoPlex II Local Anesthetic Bolus (Indicate Dose Given): Lidocaine used for local infiltration of skin, Injected in 3-5ml increments after negative blood aspiration and Bupivacaine 0.25% Dose:: 15ml Additives (Indicate Dose Given): None Ultrasound: Sterile probe cover and gel used Nerve Stimulator: Supplement to Ultrasound use Paresthesia: None Post Procedure Pain score (0-10): 4 Procedure Tolerated: No Complications and Patient tolerated well Procedure Outcome: Successful Performed By: Eduard Vegas Supervised By: Serena Frey
--- NOTE | 2024-01-30 16:58 | W.PM.OP ---
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 Nonoperative measures were exhausted but disability and pain persisted. I discussed knee arthroscopy with debridement of fat pad with the patient. I reviewed the risks of the procedure to include, but not limited to, bleeding, infection, pain, stiffness, damage to nerves or vessels, recurrence, blood clot. Despite these risks, Maite elected to proceed. Findings: Cystic fluid was encountered on placement of the lateral portal. A diagnostic arthroscopy was performed with the following findings: Suprapatellar Pouch: No significant inflammation, No loose bodies Medial Compartment: No meniscal tear, Intact meniscal root, No significant chondromalacia or signs of arthritis, No loose bodies Notch: ACL and PCL were intact Lateral Compartment: Some fraying at the posterior root of the lateral meniscus but no clear tear or capsular dissociation, Intact meniscal root, mild grade I chondromalacia of the tibia, No loose bodies Patellofemoral Compartment: No significant chondromalacia, there did appear to be some mild lateral maltracking which corrected with flexion Procedure Description: Maite was greeted in the preoperative holding area where the correct side was identified and marked. The consent was reviewed with the patient and signed. The history and physical was updated. All questions were answered. She was taken back to the operating room. The patient was placed into the supine position on the operating room table. No tourniquet was used. All bony prominences were well padded. Prophylactic antibiotics in the form of Cefazolin were administered. The left leg was then prepped with Chloraprep and draped in a standard fashion with stockinette and extremity drape. A timeout to confirm correct identity, side and site, procedure, allergies, anesthesia, and medical concerns was performed. The leg was placed into a pneumatic leg croft, [id number]. A standard lateral portal was made at the lateral border of the patella tendon in line with the inferior pole of the patella, soft spot. The skin and deep tissue was incised sharply and the blunt trochar was inserted atraumatically. During this process there was a notable evacuation of cystic fluid from this portal site. A diagnostic arthroscopy was performed and the findings are listed above. The suprapatellar pouch had no significant inflammatory change. The patellofemoral articulation showed no articular damage as well as good tracking. The lateral gutter had no loose bodies and the medial gutter had no loose bodies. The knee was brought into some valgus stress in extension to open the medial compartment. A medial portal was made, localized by a spinal needle. The portal was created with an #11 blade through skin and capsule under direct visualization avoiding any meniscal injury. A probe was then inserted into the medial compartment. The medial compartment was fully inspected. The chondral surface of the tibia showed no significant chondromalacia and the surface of the femur showed no significant chondromalacia. The medial meniscus had no meniscal tear. The notch was then inspected which showed an intact ACL and an intact PCL. The leg was then brought into a figure of 4 position. The lateral compartment was fully inspected with the arthroscope and a probe. The chondral surface of the lateral femur showed no significant chondromalacia. The chondral surface of the lateral tibia showed grade I chondromalacia. The lateral meniscus had some fraying at the posterior root of the lateral meniscus. This was debrided with a shaver to further inspected did not show any sign of significant tearing nor separation of the meniscus from the capsule or the posterior tibia. Attention was then turned to the anterior compartment of the knee. I kept the scope in the lateral portal and then perform debridement for the medial portal. The fat pad was resected by keeping the shaver against the cartilage surface with the blade facing away and allowing some gentle suction bring the fat into the shaver. This was completed from the medial portion and then the viewing portal was switched to the medial side with a shaver placed in the lateral portal. This was once again repeated until is able to see across the knee for medial lateral. There was notable inflammatory change seen in the lateral portion of the fat pad there is this resected. The arthroscope was brought back into the suprapatellar pouch and the leg was in full extension. The knee was thoroughly irrigated with the arthroscopic fluid on high flow and pressure. Inflow was stopped and excess fluid was removed. The wounds were closed with 4-0 Nylon. They were dressed with Xeroform, 4x4 gauze, ABD pad, Kerlix and an ERIKA wrap. A cryo-cuff was applied. The patient tolerated the procedure well and was returned to the Same Day Surgery area in a stable condition suffering no known complication.
[2024-01-30] MEDS: Normal Saline Flush 10 ML SYR IV (17:00)
[2024-01-30] MEDS: Droperidol 5 MG/2 ML VIAL 0.625 MG IVP (17:00)
== END 2024-01-30 17:50 | disposition home or self-care (01) ==
PROVIDERS: PCP Family Medicine; Visit Provider Student in an Organized Health Care Education/Training Program
PROC: (CPT 29870; principal; 2024-01-30 14:45)
DX: E88.89 Other specified metabolic disorders (principal); M79.4 Hypertrophy of (infrapatellar) fat pad; M23.262 Derangement of other lateral meniscus due to old tear or injury, left knee; M94.262 Chondromalacia, left knee
CPT/HCPCS: 29875; 76942; 81025; J0665; J0690; J1100; J1170; J1790; J2001; J2371; J2405; J2704; J3010

== ENCOUNTER 2024-09-09 08:12 | Outpatient (CLI) | payer BC, SELFPAY ==
[2024-09-09 08:41] LABS: HCT 40.1 % (36.0-46.0); HGB 13.5 g/dL (11.2-15.7); MCH 29.5 pg (27.0-33.0); MCHC 33.7 % (32.0-36.0); MCV 88 fL (80-95); MPV 9.8 fL (8.0-11.0); Platelet Count 290 10^3/uL (130-400); RBC 4.57 10^6/uL (3.93-5.22); RDW 12.6 % (11.7-14.6); RDW-SD 40.7 fL; WBC 5.35 10^3/uL (4.4-10.8)
[2024-09-09 09:03] LABS: TSH (W/Ref FT4) 1.81 uIU/mL (0.36-3.74)
== END 2024-09-09 08:13 | disposition home or self-care (01) ==
LOC: LBO 08:12
PROVIDERS: PCP Family Medicine; Visit Provider Family Medicine
DX: N92.0 Excessive and frequent menstruation with regular cycle (principal); E03.9 Hypothyroidism, unspecified
CPT/HCPCS: 36415; 85027; 84443

== ENCOUNTER 2024-09-15 17:22 | Emergency (ER) | payer BC, SELFPAY ==
[2024-09-15 17:36] VITALS: BP 138/93; PULSE 107; RESP 20; TEMP 36.9; O2SAT 100
--- NOTE | 2024-09-15 18:15 | DI.CT_ITS ---
Exam(s) CT ABDOMEN PELVIS W EXAM: CT ABDOMEN PELVIS W CLINICAL HISTORY: RLQ pain. TECHNIQUE: Imaging Protocol: Axial computed tomography images with coronal and sagittal reformatted images were created and reviewed CONTRAST MATERIAL: Intravenous: Omnipaque 350 Contrast volume:100 ml Oral: yes no COMPARISON: US US PELVIS TRANSVAGINAL from 09/22/2022 FINDINGS: ABDOMEN and PELVIS: Lung Bases: No acute findings. Liver: Normal density. No suspicious mass. Gallbladder and biliary tract: No radiodense calculus. No wall thickening or pericholecystic fluid. No biliary dilation. Pancreas: Normal density. No abnormal calcifications or inflammatory process. No evidence of mass. Spleen: Normal. Kidneys: Normal size, contour and axis. No radiodense stones. Mild dilatation of the renal pelves, l eft greater than right. Ureters are not dilated. No suspicious masses seen. Adrenal glands: No masses seen. Vasculature: Abdominal aorta non-dilated. Soft tissues: Unremarkable. Bladder: No gross wall thickening. No calculi.No focal mass. Bowel: No obstruction. No bowel wall thickening. Appendix normal. Peritoneal cavity: No ascites. No focal collection. No mesenteric inflammatory response. No free air . Bones: Unremarkable for age. Reproductive organs: Unremarkable the uterus appears normal in size. There is a cystic area eccentri c toward the right measuring 1.3 cm. A small amount fluid versus cystic collection measuring 5 dia meters on the left. Right ovary is partially obscured. Lymph nodes: No pathologically enlarged lymph nodes. IMPRESSION:: No acute bowel abnormality. Mild dilatation of the bilateral renal pelves, left greater than right. No source of obstruction vis ible. Rounded cystic appearing area within or adjacent to the endometrium, eccentric toward the right. Cor relation with beta HCG recommended. RADIATION DOSE DELIVERED: 293.27mGy.cm Total DLP DATA REPOSITORY: All CT scans at this facility are submitted to the National Radiology Data Registry (NRDR) Dose Index Registry (DIR) with the [employer] [place] [employer] (ACR). RADIATION OPTIMIZATION: All CT scans at this facility use at least one of these dose optimization te chniques: automated exposure control; mA and/or kV adjustment per patient size (includes targeted exa ms where dose is matched to clinical indication); or iterative reconstruction.
[2024-09-15] MEDS: ACETAMINOPHEN 500 MG/50 ML BAG 200 MG IVPB (18:49)
[2024-09-15 18:53] LABS: Abs Immature Grans 0.04 10^3/uL (0.0-0.06); Absolute Basophil Count 0.06 10^3/uL (0.0-0.2); Absolute Eosinophil Count 0.04 10^3/uL (0.0-0.7); Absolute Lymphocyte Count 1.18 10^3/uL (1.2-3.4); Absolute Monocyte Count 0.51 10^3/uL (0.1-0.8); Absolute Neutrophil Count 8.53 10^3/uL (1.2-6.7); Basophils % 0.6 %; Eosinophils % 0.4 %; HCT 40.1 % (36.0-46.0); HGB 13.6 g/dL (11.2-15.7); Immature Grans % 0.4 %; Lymphocytes % 11.4 %; MCH 29.6 pg (27.0-33.0); MCHC 33.9 % (32.0-36.0); MCV 87 fL (80-95); MPV 9.5 fL (8.0-11.0); Monocytes % 4.9 %; Neutrophils % 82.3 %; Platelet Count 315 10^3/uL (130-400); RBC 4.59 10^6/uL (3.93-5.22); RDW 12.6 % (11.7-14.6); RDW-SD 40.1 fL; WBC 10.36 10^3/uL (4.4-10.8)
[2024-09-15 18:59] LABS: Bilirubin Negative (Negative); Blood Large (Negative); Clarity Sl Cloudy (Clear); Glucose Negative (Negative); Ketones Negative (Negative); Leukocyte Esterase Trace (Negative); Nitrite Negative (Negative); Urobilinogen 0.2 mg/dL (Up to 0.2)
[2024-09-15 19:09] LABS: Bacteria Negative HPF (Negative); C & S Indicated? No; Crystals Negative HPF (Negative); Epithelial Cells Few HPF (Negative); Mucus Heavy (Negative); RBC >50 HPF (0-2)
[2024-09-15 19:12] LABS: ALT 19 U/L (14-59); AST 15 U/L (15-37); Albumin 4.4 g/dL (3.4-5.0); Alkaline Phosphatase 57 U/L (46-116); Anion Gap 9.9 mmol/L (3-11); BUN 16 mg/dL (7-18); Bilirubin, Total 0.3 mg/dL (0.2-1.0); CO2 29.1 mmol/L (21.0-32.0); CREATININE 0.7 mg/dL (0.55-1.02); Calcium 9.6 mg/dL (8.5-10.1); Chloride 104 mmol/L (98-107); Estimated GFR 105.95 (mL/min/1.73m2); Glucose 93 mg/dL (74-106); Lipase 35 U/L (<78); Potassium 3.5 mmol/L (3.5-5.1); Sodium 143 mmol/L (136-145); Total Protein 7.8 g/dL (6.4-8.2)
[2024-09-15] MEDS: Omnipaque 350 MG/ML 100 ML BTL 75 ML IJ (19:20)
[2024-09-15] MEDS: Normal Saline - Diluent 50 ML VIAL IJ (19:21)
[2024-09-15 20:00] VITALS: BP 136/97; PULSE 83; RESP 14; O2SAT 99
--- NOTE | 2024-09-15 20:20 | DI.VRAD_ITS ---
PROCEDURE INFORMATION: Exam: CT Abdomen And Pelvis With Contrast Exam date and time: 09/15/2024 7:15 PM Age: 49 years old Clinical indication: Other: Rlq TECHNIQUE: Imaging protocol: Computed tomography of the abdomen and pelvis with contrast. Contrast material: 350; Contrast volume: 75 ml; Contrast route: INTRAVENOUS (IV); COMPARISON: CR XR HIP LT COMPLETE AP PELVIS 11/27/2023 11:32 AM FINDINGS: Lungs: Mild dependent atelectasis. Liver: Small indeterminate hypoattenuating hepatic lesion, incompletely characterized but most likely a small cyst or hemangioma. Gallbladder and biliary ducts: Normal appearing gallbladder. No calcified gallstones. No biliary dilatation. Pancreas: Normal appearing pancreas. Spleen: Normal appearing spleen. Adrenal glands: Normal appearing adrenal glands. Kidneys and ureters: Mild bilateral hydronephrosis, nonspecific. No ureterectasis. Tiny indeterminate hypoattenuating renal lesions, not well characterized but statistically most likely renal cysts. Ureters obscured. Stomach and bowel: No oral contrast. Stomach partially decompressed. No small bowel dilatation to suggest obstruction. Normal-appearing fecal material in the colon. Normal-appearing fecal material in the colon. No evidence of diverticulitis or colitis. Appendix: Appendix not identified, obscured if present. Correlation with surgical history recommended. If there is clinical concern for acute appendicitis and the patient still has an appendix, additional evaluation would be recommended. Intraperitoneal space: No gross ascites or free air. Vasculature: Normal caliber abdominal aorta. Lymph nodes: No pathologically enlarged mesenteric, retroperitoneal, or pelvic sidewall lymph nodes. Urinary bladder: Normal appearing urinary bladder. Reproductive: Uterus partially obscured but normal in size. Small cyst-like findings in the endometrial canal at the uterine fundus measuring 1.2 cm x 1.3 cm on the right and 0.4 cm x 0.5 cm on the left on image 59 of series 8. Ovaries partially obscured but normal in size 0.8 cm peripherally enhancing right ovarian corpus luteum , images 64 of series 8 and 24 of series 4. Bones/joints: No acute fracture seen among the bones of the abdomen or pelvis. Soft tissues: No significant ventral or inguinal hernia. IMPRESSION: 1. 0.8 cm peripherally enhancing right ovarian corpus luteum. No gross free pelvic fluid. 2. Small cyst-like findings in the endometrial cavity at the uterine fundus measuring 1.2 cm x 1.3 cm on the right and 0.4 cm x 0.5 cm on the left. Fluid in the endometrial cavity or unusual cysts could probably have this appearance; however, correlation with a test is recommended to definitively exclude an intrauterine gestation. 3. No acute bowel pathology demonstrated. 4. Mild bilateral hydronephrosis, nonspecific. No ureterectasis. Dictated and Authenticated by: Yadiel Granda MD. Orderin Tay Garza MD
[2024-09-15 20:52] VITALS: BP 142/74; PULSE 73; O2SAT 99
[2024-09-15] MEDS: Cyclobenzaprine 10 MG TAB, 3 TABS/BTL PO (20:52)
--- NOTE | 2024-09-15 22:50 | W.ED.GENAD ---
Discharge Plan Disposition Patient Disposition: Home Condition: Stable Discharge Details Clinical Impression: Ovarian cyst, Dysmenorrhea, Hydronephrosis Primary Care Provider: Rhianna Newell ED Provider: Kayla Cross Home Meds and New Rx's Prescriptions: Continued levothyroxine 75 mcg capsule 75 mcg PO DAILY valacyclovir 1 gram tablet 2,000 mg PO BID PRN Rx Instructions: for two doses acetaminophen 500 mg tablet 500 mg PO Q6H PRN (Reason: pain) Qty: 60 2RF Discharge Instructions Instructions: Hydronephrosis, Adult (DC), Ovarian Cyst ED Additional Instructions: Try taking Flexeril should the pain return hot water bottle, Motrin and Tylenol as needed for discomfort follow-up with Dr. Del Toro next week and I am ordering an outpatient ultrasound of your kidneys and pelvis. You have hydronephrosis or fluid on your kidneys uncertain as to the etiology of this, you may need referral to urology at the discretion of your provider Diagnostic imaging should be calling you to schedule outpatient ultrasounds Please return immediately should you have new or worsening complaints Referrals: Rhianna Newell MD [Primary Care Provider] - 3 days Discharge Orders Other Ambulatory Orders: US pelvis & renal (Routine) Timeframe: 10 Day Facility: [facility] - Location: DIAGNOSTIC IMAGING Ordered By: Kayla Cross HPI General Date/Time Provider Initiated Documentation: 09/15/24 17:55. HPI Narrative: 49-year-old female with right lower quadrant pain starting at 1600 hours today. Similar episode a week ago resolved spontaneously. Pain is sharp and stabbing, similar to previous ovarian cysts. Experiencing vaginal bleeding. Sexually active in a monogamous relationship, no STD risk factors. No urinary symptoms. 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 Vital signs: Vitals stable. HEENT: Within normal limits. Respiratory: Within normal limits. Cardiovascular: Distal pulses intact. Gastrointestinal: Tenderness in right lower quadrant. No right flank pain. Skin: Warm and dry, no rash. Neurological: Alert and oriented. Course Vital Signs Vital signs: Vital Signs Temperature 36.9 C 09/15/24 17:36 Pulse 107 H 09/15/24 17:36 Respiratory Rate 20 09/15/24 17:36 Blood Pressure 138/93 H 09/15/24 17:36 Pulse Oximetry 100 09/15/24 17:36 Temperature 36.9 C 09/15/24 17:36 Pulse 73 09/15/24 20:52 Respiratory Rate 14 09/15/24 20:00 Blood Pressure 142/74 H 09/15/24 20:52 Pulse Oximetry 99 09/15/24 20:52 Oxygen Delivery Method Room Air 09/15/24 20:00 Oxygen Flow Rate 0 09/15/24 20:00 Pain Level 6 09/15/24 17:36 Lab/Test Results Lab/Test Results: Laboratory Tests Range/Units 09/15/24 09/15/24 18:32 18:43 WBC (4.4-10.8) 10^3/uL 10.36 RBC (3.93-5.22) 10^6/uL 4.59 Hgb (11.2-15.7) g/dL 13.6 Hct (36.0-46.0) % 40.1 MCV (80-95) fL 87 MCH (27.0-33.0) pg 29.6 MCHC (32.0-36.0) % 33.9 RDW (11.7-14.6) % 12.6 Plt Count (130-400) 10^3/uL 315 MPV (8.0-11.0) fL 9.5 Immature Gran % % 0.4 Neutrophils % % 82.3 Lymphocytes % % 11.4 Monocytes % % 4.9 Eosinophils % % 0.4 Basophils % % 0.6 Nucleated RBC % (0.0-0.3) % 0.0 Absolute Neutrophils (1.2-6.7) 10^3/uL 8.53 H Absolute Lymphocytes (1.2-3.4) 10^3/uL 1.18 L Absolute Monocytes (0.1-0.8) 10^3/uL 0.51 Absolute Eosinophils (0.0-0.7) 10^3/uL 0.04 Absolute Basophils (0.0-0.2) 10^3/uL 0.06 Sodium (136-145) mmol/L 143 Potassium (3.5-5.1) mmol/L 3.5 Chloride (98-107) mmol/L 104 Carbon Dioxide (21.0-32.0) mmol/L 29.1 Anion Gap (3-11) mmol/L 9.9 BUN (7-18) mg/dL 16 Creatinine (0.55-1.02) mg/dL 0.7 Est GFR (CKD-EPI 2020) (mL/min/1.73m2) 105.95 Glucose (74-106) mg/dL 93 Calcium (8.5-10.1) mg/dL 9.6 Total Bilirubin (0.2-1.0) mg/dL 0.3 AST (15-37) U/L 15 ALT (14-59) U/L 19 Alkaline Phosphatase (46-116) U/L 57 Total Protein (6.4-8.2) g/dL 7.8 Albumin (3.4-5.0) g/dL 4.4 Lipase (<78) U/L 35 Urine Color (Yellow) Yellow Urine Clarity (Clear) Sl Cloudy Urine pH (5-8) 7.0 Ur Specific [place] (1.005-1.025) 1.020 Urine Protein (Neg-Trace) mg/dL Negative Urine Ketones (Negative) mg/dL Negative Urine Blood (Negative) Large H Urine Nitrite (Negative) Negative Urine Bilirubin (Negative) Negative Urine Urobilinogen (Up to 0.2) mg/dL 0.2 Ur Leukocyte Esterase (Negative) Trace H Urine RBC (0-2) HPF >50 H Urine WBC (0-5) HPF 3-5 Ur Epithelial Cells (Negative) HPF Few Urine Crystals (Negative) HPF Negative Urine Bacteria (Negative) HPF Negative Urine Mucus (Negative) Heavy Ur Culture Indicated? No Urine Glucose (Negative) mg/dL Negative POC- Test(urine) Negative Medical Decision Making Urinalysis: blood, consistent with menstrual period, >50 RBCs. Labs: no acute abnormalities. CT abdomen/pelvis: corpus luteal cyst on right, bilateral hydronephrosis without obstruction. Initial Assessment: 49-year-old female with right lower quadrant pain starting at four today, similar to previous episode a week ago. History of ovarian cysts, sharp and stabbing pain, vaginal bleeding, sexually active, monogamous, denies risk of STDs, no urinary symptoms, no acute distress, alert and oriented, right lower quadrant tenderness, no right flank pain, distal pulses intact. ED Course: - CT abdomen and pelvis ordered: corpus luteal cyst on right, bilateral hydronephrosis without obstruction, read by me. - Urinalysis: blood, consistent with menstrual period, >50 RBCs. - Pain resolved with acetaminophen. - Labs: no acute abnormalities. - Ordered renal and pelvic ultrasound. - Referred to PCP for reassessment. - Return precautions discussed, patient understands. Final Assessment: Right lower quadrant pain resolved after acetaminophen, corpus luteal cyst on right, bilateral hydronephrosis without obstruction, urinalysis consistent with menstrual bleeding, no acute abnormalities in labs. Clinical Impression: - Right lower quadrant pain - Corpus luteal cyst - Bilateral hydronephrosis - Menstrual bleeding Disposition: - Discharge - Follow-Up: Repeat urinalysis by PCP, renal and pelvic ultrasound, reassessment by PCP. MDM Components Evaluation: - Number of Differential Diagnoses or Management Options: Right lower quadrant pain, corpus luteal cyst, bilateral hydronephrosis, menstrual bleeding. - Amount and Complexity of Data Reviewed: CT abdomen and pelvis, urinalysis, labs. - Risk of Complication and Morbidity or Mortality: Low risk based on stable vitals, resolved pain, and no acute abnormalities in labs. Quality:[facility] Health Related Social Needs: No Data to Display [facility] All Active Problems (Updated 09/15/24 @ 20:38 by BOOGIE Laguna) Hydronephrosis (Acute) Dysmenorrhea (Acute) Ovarian cyst (Acute) Pes anserinus bursitis of left knee (Acute) Patellar tendinitis, left knee (Acute) Hoffa's fat pad disease (Acute) Status post left knee arthroscopy DOS: 01/30/2024 Knee joint cyst, left (Acute) Degenerative joint disease of left hip (Acute) Chronic left hip pain (Acute) Internal derangement of left knee (Acute) Lip lesion (Acute) Disorder of the skin and subcutaneous tissue, unspecified (Acute) Hypothyroid (Chronic) Insomnia (Acute) Medical History Pain, joint, knee, left Menorrhagia Dysmenorrhea Perimenopausal menorrhagia Novasure endometrial ablation 05/03/23 Cold sore Surgical History History of endometrial ablation History of hysteroscopy D&C, hysteroscopy, novasure endometrial ablation 05/03/23 for menorrhagia History of colonoscopy (~01/2023) Hx of tubal ligation Family History Mother Hyperlipidemia Brother Stroke Father No problems noted. Son No problems noted. Maternal Grandfather Skin cancer Maternal Grandmother Cancer Social History Smoking/Tobacco Use Status: Never Smoking risk assessment performed?: Yes Alcohol Intake: never Drug use: Never Substance use type: does not use Housing: house Do you feel safe at home: Yes Do you feel safe in your relationship?: Yes
--- NOTE | 2024-09-16 08:37 | ED.PROG_ITS ---
Date of service: 09/16/24 Time of Service: 08:37 Medical Decision Making I adjusted this patient's outpatient orders per her original provider from yesterday. Quality:SDOH Health Related Social Needs: No Data to Display Discharge Plan Disposition Patient Disposition: Home Condition: Stable Discharge Details Clinical Impression: Ovarian cyst, Dysmenorrhea, Hydronephrosis Primary Care Provider: Rhianna Newell ED Provider: Kayla Cross Home Meds and New Rx's Prescriptions: Continued levothyroxine 75 mcg capsule 75 mcg PO DAILY valacyclovir 1 gram tablet 2,000 mg PO BID PRN Rx Instructions: for two doses acetaminophen 500 mg tablet 500 mg PO Q6H PRN (Reason: pain) Qty: 60 2RF Discharge Instructions Instructions: Hydronephrosis, Adult (DC), Ovarian Cyst ED Additional Instructions: Try taking Flexeril should the pain return hot water bottle, Motrin and Tylenol as needed for discomfort follow-up with Dr. Del Toro next week and I am ordering an outpatient ultrasound of your kidneys and pelvis. You have hydronephrosis or fluid on your kidneys uncertain as to the etiology of this, you may need referral to urology at the discretion of your provider Diagnostic imaging should be calling you to schedule outpatient ultrasounds Please return immediately should you have new or worsening complaints Referrals: Rhianna Newell MD [Primary Care Provider] - 3 days Discharge Orders Other Ambulatory Orders: US renal (Routine) Timeframe: 10 Day Facility: [facility] - Location: DIAGNOSTIC IMAGING Ordered By: Mark Geller US pelvis & renal (Routine) Timeframe: 10 Day Facility: [facility] - Location: DIAGNOSTIC IMAGING Ordered By: Kayla Cross US pelvis & transvaginal (Routine) Timeframe: 10 Day Facility: [facility] - Location: DIAGNOSTIC IMAGING Ordered By: Mark Geller Discharge Data Discharge Date/Time-TO BE ENTERED AT DEPARTURE: 09/15/24 20:54
--- NOTE | 2024-09-16 09:40 | W.EDPROG ---
Date of service: 09/16/24 Time of Service: 09:40 Medical Decision Making I ordered imaging per original providers for outpatient follow-up. Quality:SDOH Health Related Social Needs: No Data to Display Discharge Plan Disposition Patient Disposition: Home Condition: Stable Discharge Details Clinical Impression: Ovarian cyst, Dysmenorrhea, Hydronephrosis Primary Care Provider: Rhianna Newell ED Provider: Kayla Cross Home Meds and New Rx's Prescriptions: Continued levothyroxine 75 mcg capsule 75 mcg PO DAILY valacyclovir 1 gram tablet 2,000 mg PO BID PRN Rx Instructions: for two doses acetaminophen 500 mg tablet 500 mg PO Q6H PRN (Reason: pain) Qty: 60 2RF Discharge Instructions Instructions: Hydronephrosis, Adult (DC), Ovarian Cyst ED Additional Instructions: Try taking Flexeril should the pain return hot water bottle, Motrin and Tylenol as needed for discomfort follow-up with Dr. Del Toro next week and I am ordering an outpatient ultrasound of your kidneys and pelvis. You have hydronephrosis or fluid on your kidneys uncertain as to the etiology of this, you may need referral to urology at the discretion of your provider Diagnostic imaging should be calling you to schedule outpatient ultrasounds Please return immediately should you have new or worsening complaints Referrals: Rhianna Newell MD [Primary Care Provider] - 3 days Discharge Orders Other Ambulatory Orders: US pelvis & transvaginal (Routine) Timeframe: 10 Day Facility: [facility] - Location: DIAGNOSTIC IMAGING Ordered By: Mark Geller US pelvis & renal (Routine) Timeframe: 10 Day Facility: [facility] - Location: DIAGNOSTIC IMAGING Ordered By: Kayla Cross Discharge Data Discharge Date/Time-TO BE ENTERED AT DEPARTURE: 09/15/24 20:54
== END 2024-09-15 20:54 | disposition home or self-care (01) ==
PROVIDERS: Emergency Provider Physician Assistant; PCP Family Medicine
DX: N83.201 Unspecified ovarian cyst, right side; N13.30 Unspecified hydronephrosis; N94.6 Dysmenorrhea, unspecified; R10.31 Right lower quadrant pain
CPT/HCPCS: 99284; 99285; 81025; 36415; 00123; 80053; 83690; 96365; 74177; 81003; 81015; 85025; J0131; J3490

== ENCOUNTER 2024-09-24 18:02 | Outpatient (REF) | payer BC, SELFPAY ==
--- NOTE | 2024-09-24 16:00 | ENDOMET_PTH ---
PATIENT: Maite Morris LOC: [facility] U#:[id number] AGE/SX: 49/F ROOM: RE09/24/[address]: Linette Lynn MD : 1975 BED: DIS: 09/24/2024 SPEC #: [id number] RECD: 09/24/24 18:13 STATUS: MAXINE REQ #: [id number] CINDY: 09/24/24 16:[address]: Linette Lynn DEPT: Surgical Specimen RECD BY: Kayla Mabry ENTERED: 09/24/24 18:14 SP TYPE: Endomet OTHR DR: Rhianna Newell Tissues: 1 - ENDOMETRIUM BX/RAOUL Procedures: GROSS AND MICRO LEVEL 4 Comments: [id number]
== END 2024-09-24 18:03 | disposition home or self-care (01) ==
LOC: LBN 18:02
PROVIDERS: PCP Family Medicine; Visit Provider Obstetrics & Gynecology
DX: N85.00 Endometrial hyperplasia, unspecified (principal); N92.4 Excessive bleeding in the premenopausal period
CPT/HCPCS: 88305

== ENCOUNTER 2024-10-11 00:18 | Outpatient (CLI) | payer BC, SELFPAY ==
--- NOTE | 2024-10-11 | DI.MAMMO_ITS ---
Exam(s) MAMMO SCREENING EXAM: MAMMO SCREENING CLINICAL HISTORY: Screening, Z12.31 TECHNIQUE: Mammograms were interpreted according to the usual protocol including computer analysis w [employer] CAD system, tomosynthesis and C-view imaging. COMPARISON: 2017 through 2023 FINDINGS: The breasts are composed of heterogeneously dense fibroglandular densities, Breast Density category C . No suspicious masses or suspicious microcalcifications are seen. No skin thickening or abnormal axillary lymph nodes are seen. There has been no significant change from prior exams. IMPRESSION: BI-RADS Category 1, Negative mammogram. Yearly screening mammography is recommended. Breast Density Category C, heterogeneously Dense. Breast density Category C or D implies that the patient has dense breast tissue. Dense breast tissue can make it harder to find cancer on a mammogram. Dense breast tissue is also associated with an incr eased risk of breast cancer. This information about the result of the mammogram report was provided to the patient to raise their awareness. Use this report when you speak with the patient about their risks for breast cancer, which includes their family history. At that time, you may recommend additional screening tests (Ultrasoun d or MRI) as these tests may add significant information. A negative radiographic report should not delay biopsy if a dominant or clinically suspicious mass is present. Up to ten percent of cancers are not identified on mammography. A negative report may reinforce clinical impression. Adenosis and dense breasts may obscure an underlying neoplasm. False positive reports average 6 to 10%.
== END 2024-10-11 00:38 ==
PROVIDERS: PCP Family Medicine; Visit Provider Family Medicine
DX: Z12.31 Encounter for screening mammogram for malignant neoplasm of breast (principal); R92.333 Mammographic heterogeneous density, bilateral breasts
CPT/HCPCS: 77063; 77067